=== PATIENT | male | born 1960 | race Two or more races ===

== ENCOUNTER 2019-04-05 06:18 | Inpatient (IN) | payer OTHER ==
[~2019-04-05] VITALS: Ht 167.6 cm; Wt 100.2 kg
[2019-04-05 06:37] VITALS: BP 162/79
--- NOTE | 2019-04-05 06:41 | NUR ---
RN OPENING TELE ADMISSION NOTES: RECIVED PT AT 0645 AM FROM [facility]. NEW ONSET OF ASITIES 14 LBS WIEGHT GAIN OVER THE LAST FOUR WEEKS. PT IS NOW SR. CC SOB AND LETHARGY. TWO DAUGHTERS AT BEDSIDE UPON ADMISSION. HOME MEDS NOT PRESENT BUT PT TAKES METROPOLOL AND LISINOPRIL. HISTORY OF HTN AND DIABETES TYPE 2. ELEVATED TROPONIN AND AST/ALT- WITH LIVER FAILURE - DRINKS 12 PLUS BEER A DAY. PT IS ALERT AND ARIENTED TIMES 4 AND AMB/ IND. WILL ENDORSE TO AM SHIFT TO DO PLAN OF CARE.
--- NOTE | 2019-04-05 07:20 | NUR ---
CITY ROUTE DRIVER OPENING NOTES RECEIVED REPORT FROM WANT AD RECEIVER RN PT IS A&OX3. PT DENIES ANY PAIN OR SOB AT PRESENT MOMENT. PT IS ON STAPLE CUTTER SR IN THE 70S. PT IS MAINLY FRISIAN SPEAKING BUT CAN UNDERSTAND LITHUANIAN. FAMILY IS AT BEDSIDE. PT IS IN BED IN SEMI MOTA POSITION WITH X2 SIDERAILS UP. WILL CONTINUE TO MONITOR.
[2019-04-05] MEDS ORDERED: METF-440 PO (07:36)
[2019-04-05] MEDS ORDERED: LISI-603 PO (07:36)
[2019-04-05] MEDS ORDERED: METO50TA16 PO (07:36)
[2019-04-05 08:00] VITALS: BP 143/90
[2019-04-05] MEDS ORDERED: ACETAMINOPHEN 325 MG TABLET PO PRN (10:00)
[2019-04-05] MEDS ORDERED: Z GUARD REMEDY 2 OZ OINT TP PRN (10:00)
[2019-04-05] MEDS ORDERED: ZOLPIDEM TARTRATE 5 MG TABLET PO PRN (10:00)
[2019-04-05] MEDS ORDERED: MORPHINE SULFATE INJ 2 MG/ML DISP.SYRIN IV PRN (10:00)
[2019-04-05] MEDS ORDERED: MAG HYDROX/AL HYDROX/SIMETH 30 ML UDC PO PRN (10:00)
[2019-04-05] MEDS ORDERED: ONDANSETRON HCL/PF 4 MG/2 ML VIAL IVP PRN (10:00)
[2019-04-05] MEDS ORDERED: LORAZEPAM INJ 2 MG/ML VIAL IV PRN ×3 (10:00→16:30)
[2019-04-05] MEDS ORDERED: MAGNESIUM HYDROXIDE 30 ML UDC PO PRN (10:00)
[2019-04-05 10:51] LABS: BASOPHILS % (AUTO) 0.7 % (0.0-2.0); EOSINOPHILS % (AUTO) 1.1 % (0.0-6.0); HEMATOCRIT 36 % (39-51); HEMOGLOBIN 12.3 g/dL (13.5-17.5); LYMPHOCYTES # (AUTO) 0.9 /CMM (0.8-4.8); LYMPHOCYTES % (AUTO) 17.2 % (20.0-44.0); MEAN CORPUSCULAR HGB CONC 34 g/dl (31.0-36.0); MEAN CORPUSCULAR VOLUME 104 fL (80-96); MONOCYTES # (AUTO) 0.5 /CMM (0.1-1.30); MONOCYTES % (AUTO) 9.8 % (2.0-12.0); NEUTROPHILS # (AUTO) 3.9 /CMM (1.8-8.9); NEUTROPHILS % (AUTO) 71.2 % (43.0-81.0); PLATELET COUNT (AUTO) 150 /CMM (150-450); RED BLOOD CELL COUNT(AUTO) 3.46 MIL/uL (4.5-6.0); WHITE BLOOD COUNT (AUTO) 5.4 K/uL (4.3-11.0)
--- NOTE | 2019-04-05 10:52 | NUR ---
DAUGHTER IS WORRIED ABOUT ALCOHOL WITHDRAWALS SAYS LAST DRINK WAS SUNDAY AFTERNOON.
[2019-04-05 11:03] LABS: ALBUMIN 2.7 g/dL (3.4-5.0); BILIRUBIN,TOTAL 2.9 mg/dL (0.2-1.0); CALCIUM, SERUM 8.1 mg/dL (8.5-10.1); CREATININE 0.6 mg/dL (0.6-1.3); MAGNESIUM 1.9 mg/dL (1.8-2.4); PHOSPHORUS 2.6 mg/dL (2.5-4.9); POTASSIUM 3.8 mmol/L (3.5-5.1); TOTAL PROTEIN, SERUM 6.6 g/dL (6.4-8.2)
[2019-04-05 11:07] LABS: THYROID STIMULATING HORMONE 2.21 uIU/mL (0.358-3.74)
[2019-04-05 12:00] VITALS: BP 182/97
[2019-04-05] MEDS: METFORMIN 500 MG TABLET PO SCH ×2 (12:20→17:25)
[2019-04-05] MEDS: LISINOPRIL (20MG) 20 MG TABLET PO SCH (12:25)
[2019-04-05 13:29] LABS: APPEARANCE,URINE CLEAR (CLEAR); BILIRUBIN,URINE NEGATIVE (NEGATIVE); BLOOD, URINE NEGATIVE Ery/uL (NEGATIVE); COLOR,URINE DARK YELLO (YELLOW); KETONES,URINE NEGATIVE (NEGATIVE); LEUKOCYTE ESTERASE ,URINE NEGATIVE (NEGATIVE); NITRITE, URINE NEGATIVE (NEGATIVE); PH,URINE 6.5 (5.0-8.0); PROTEIN,URINE TRACE mg/dl (NEGATIVE); UGLUCOSE NEGATIVE (NEGATIVE); UROBILINOGEN,URINE 0.2 EU/dL (0.2)
[2019-04-05 13:37] LABS: WBC,URINE 0-2 /HPF (0-3)
[2019-04-05 13:38] LABS: BACTERIA,URINE Rare /HPF (None Seen); RBC,URINE 0-2 /HPF (0-2); SQUAMOUS EPITHELIAL CELL,UR Rare /HPF (None Seen)
[2019-04-05 16:00] VITALS: BP 158/101
--- NOTE | 2019-04-05 16:21 | NUR ---
PT REFUSES PNEUMONIA VACCINE SAYS HE IS NOT INTERESTED.
[2019-04-05] MEDS: DOCUSATE SODIUM 100 MG CAPSULE PO SCH (17:24)
[2019-04-05] MEDS: METOPROLOL TARTRATE 50 MG TABLET PO SCH (17:26)
--- NOTE | 2019-04-05 17:27 | NUR ---
VITALS BP 158/101, HR 112. LOPRESSOR GIVEN. COMPUTER CRASHED NOT SAVED.
[2019-04-05 18:46] LABS: OCCULT BLOOD STOOL NEGATIVE (NEGATIVE)
[2019-04-05 18:51] LABS: B-TYPE NATRIURETIC PEPTIDE 160 PG/ML (0-125)
[2019-04-05] MEDS: CHLORDIAZEPOXIDE HCL 25 MG CAPSULE PO SCH (19:11)
--- NOTE | 2019-04-05 19:27 | NUR ---
glass furnace operator closing notes Gave REPORT to CONTENT WRITER RN PT IS A&OX3. PT DENIES ANY PAIN OR SOB AT PRESENT MOMENT. PT IS ON COMBAT CONTROL SR IN THE 70S. PT IS MAINLY PERUVIAN SPEAKING BUT CAN UNDERSTAND AUSTRALIAN. FAMILY IS AT BEDSIDE. PT IS IN BED IN SEMI MOTA POSITION WITH X2 SIDERAILS UP. WILL endorse continuity of care to maintenance mechanic 2nd shift rn.
[2019-04-05 20:00] VITALS: BP 141/75
--- NOTE | 2019-04-05 20:00 | NUR ---
RN/TELE NOTES: RECEIVED PT. IN BED SLEEPING W/ RESPIRATIONS EVEN AND UNLABORED. ON TELE MONITOR W/ SR. MOSTLY GREENLANDIC SPEAKING ONLY. DAUGHTERS AT BED SIDE. CONTINENT OF B/B. ABLE TO AMBULATE W/ STEADY GAIT. NO S/S OF CHEST PAIN OR SOB NOTED. CALL LIGHT W/REACH. WILL CONTINUE TO MONITOR.
[2019-04-06] VITALS: BP 166/89
[2019-04-06 04:00] VITALS: BP 166/89
[2019-04-06 07:05] LABS: BASOPHILS # (AUTO) 0.1 /CMM (0.0-0.2); BASOPHILS % (AUTO) 1.4 % (0.0-2.0); EOSINOPHILS % (AUTO) 3.6 % (0.0-6.0); HEMATOCRIT 37 % (39-51); HEMOGLOBIN 12.4 g/dL (13.5-17.5); LYMPHOCYTES % (AUTO) 17.7 % (20.0-44.0); MEAN CORPUSCULAR HGB CONC 34 g/dl (31.0-36.0); MEAN CORPUSCULAR VOLUME 106 fL (80-96); MONOCYTES # (AUTO) 0.6 /CMM (0.1-1.30); MONOCYTES % (AUTO) 10.7 % (2.0-12.0); NEUTROPHILS # (AUTO) 3.7 /CMM (1.8-8.9); NEUTROPHILS % (AUTO) 66.6 % (43.0-81.0); PLATELET COUNT (AUTO) 143 /CMM (150-450); RED BLOOD CELL COUNT(AUTO) 3.46 MIL/uL (4.5-6.0); WHITE BLOOD COUNT (AUTO) 5.5 K/uL (4.3-11.0)
--- NOTE | 2019-04-06 07:16 | NUR ---
TELE/RN NOTES: REPORT GIVEN TO NEXT SHIFT NURSE FOR OPHELIA.
[2019-04-06 07:28] LABS: ALBUMIN 2.5 g/dL (3.4-5.0); BILIRUBIN,DIRECT 2.2 mg/dL (0.0-0.2); BILIRUBIN,TOTAL 3.4 mg/dL (0.2-1.0); CALCIUM, SERUM 8.4 mg/dL (8.5-10.1); CREATININE 0.7 mg/dL (0.6-1.3); MAGNESIUM 1.8 mg/dL (1.8-2.4); PHOSPHORUS 2.6 mg/dL (2.5-4.9); TOTAL PROTEIN, SERUM 6.5 g/dL (6.4-8.2)
[2019-04-06] MEDS ORDERED: PANTOPRAZOLE 40 MG TABLET.DR PO SCH (07:30)
--- NOTE | 2019-04-06 07:30 | NUR ---
SUPERVISOR GROVE NOTES: RECEIVED PT. IN BED ,AWAKE , ALERT X4 W/ RESPIRATIONS EVEN AND UNLABORED. ON TELE MONITOR W/ SR. HR 97 MOSTLY PORTUGUESE SPEAKING ONLY. ABLE TO AMBULATE W/ STEADY GAIT. NO S/S OF CHEST PAIN OR SOB NOTED. CALL LIGHT W/REACH. WILL CONTINUE TO MONITOR.,RT AC HL INTACT, NO S\S INFECTION NOTED , BED IN LOWEST AND LOCKED POSITION , SAFETY MEASURE OBSERVED Addendum: 04/06/19 at 0753 by CHINEDU WAHL RN abdomen is distended and firm to touch
[2019-04-06 08:00] VITALS: BP_SYST 166; BP_SYST 174; BP_DIAS 89; BP_DIAS 95
[2019-04-06] MEDS: DOCUSATE SODIUM 100 MG CAPSULE PO SCH (08:05)
[2019-04-06] MEDS: METOPROLOL TARTRATE 50 MG TABLET PO SCH (08:06)
[2019-04-06] MEDS: METFORMIN 500 MG TABLET PO SCH (08:06)
[2019-04-06] MEDS: CHLORDIAZEPOXIDE HCL 25 MG CAPSULE PO SCH (08:07)
[2019-04-06] MEDS: LISINOPRIL (20MG) 20 MG TABLET PO SCH (08:07)
[2019-04-06] MEDS ORDERED: FOLIC ACID 1 MG TABLET PO SCH (09:00)
[2019-04-06] MEDS ORDERED: THIAMINE HCL 100 MG TABLET PO SCH (09:00)
[2019-04-06 12:00] VITALS: BP_SYST 163; BP_DIAS 80; BP_DIAS 86
--- NOTE | 2019-04-06 12:11 | NUR ---
SOLAR/RENEWABLE ENERGY SALES NOTE SEEN BY DR TOVAR GI DOCTOR AWARE THAT PATIENT STILL HAS ABDOMINAL DISTENTION ,STATED OK TO DO PARACENTESIS TOMORROW IF PATIENT DONT GO HOME, WILL F\I
--- NOTE | 2019-04-06 14:00 | NUR ---
FINISHER F[employer]ASS BOAT PARTS NOTE SEEN BY TONNY CHRISTIANSON OK TO DISCHARGE HOME
[2019-04-06] MEDS ORDERED: CHLO25CA22 PO (14:03)
--- NOTE | 2019-04-06 15:13 | NUR ---
CLERICAL AND ADMINISTRATIVE WORKERS NOTE DISCHARGE INSTRUCTION GIVEN TO DAUGHTER AND PATIENT , UNDERSTOOD , HL REMOVED ,NO BLEEDING NOTED ,NO S\S INFECTION NOTED , PX GIVEN ,UNDERSTOOD , INSTRUCTED HOW TO TAKE NEW PX AND HOME MEDS AND POSSIBLE SIDE EFFECTS, TELE REMOVED , BELONGING SIGNED, PLACED ON W\C , WENT HOME WITH DAUGHTER IN STABLE CONDITION,INSTRUCTED TO F\U WITH PRIMARY CARE DOCTOR AND GI DOCTOR AND F\U WITH [facility],
== END 2019-04-06 15:15 | disposition home or self-care (01) | DRG 280 ==
LOC: TELE1 06:18
PROVIDERS: ADMIT Hospitalist; ATTEND Hospitalist
DX: K70.31 Alcoholic cirrhosis of liver with ascites (principal); K76.6 Portal hypertension; D68.8 Other specified coagulation defects; E44.0 Moderate protein-calorie malnutrition; E88.09 Other disorders of plasma-protein metabolism, not elsewhere classified; E11.9 Type 2 diabetes mellitus without complications; D53.9 Nutritional anemia, unspecified; E66.9 Obesity, unspecified; F10.229 Alcohol dependence with intoxication, unspecified; F10.239 Alcohol dependence with withdrawal, unspecified; I10 Essential (primary) hypertension; K57.90 Diverticulosis of intestine, part unspecified, without perforation or abscess without bleeding; Z68.35 Body mass index [BMI] 35.0-35.9, adult; Y90.5 Blood alcohol level of 100-119 mg/100 ml; R74.8 Abnormal levels of other serum enzymes; Z71.3 Dietary counseling and surveillance; K80.20 Calculus of gallbladder without cholecystitis without obstruction
CPT/HCPCS: 36415; 71045-TC; 80053-TC; 80061-TC; 81000-TC; 82140-TC; 82247-TC; 82248-TC; 82272-TC; 83690-TC; 83735-TC; 83880; 84100-TC; 84443-TC; 84484-TC; 85025-TC; 85730-TC; G0378; G0480; J2060; J2405